=== PATIENT | female | born 1980 | race Caucasian/White ===

== ENCOUNTER 2019-01-29 08:15 | Emergency (ER) | payer OTHER ==
[~2019-01-29] VITALS: Ht 172.7 cm; Wt 68.0 kg
[2019-01-29] MEDS ORDERED: MENOPAUSE SUPPO20 MG PO (08:29)
[2019-01-29] MEDS ORDERED: ASA5UEC PO (08:29)
[2019-01-29 10:04] VITALS: BP 120/65
== END 2019-01-29 10:04 | disposition home or self-care (01) ==
LOC: M.ERS 08:15
DX: G43.909 Migraine, unspecified, not intractable, without status migrainosus (principal); F17.210 Nicotine dependence, cigarettes, uncomplicated